=== PATIENT | female | born 1970 | race Caucasian/White ===

== ENCOUNTER 2017-11-14 07:45 | Inpatient (IN) | payer OTHER ==
[~2017-11-14] VITALS: Ht 162.6 cm; Wt 68.0 kg
[~2017-11-14 07:45] MED LIST: FOLIC ACID1 MG PO; IRON159 MG PO; MEGESTROL ACETA40 MG PO
[2017-11-23] MEDS ORDERED: IBUPROFEN800 MG PO (07:15)
[2017-11-23] MEDS ORDERED: Mylicon 125MG PO (07:15)
[2017-11-23] MEDS ORDERED: POLY119PG PO (07:15)
[2017-11-23] MEDS ORDERED: GABAPENTIN600 MG PO (07:15)
== END 2017-11-23 09:22 | DRG 743 ==
LOC: OB/GYN 11-21 05:15 → O/R 11-21 05:15 → SURH 11-21 05:15 → OB/GYN 11-21 12:15
PROVIDERS: Obstetrics & Gynecology
PROC: 0UT70ZZ Resection of Bilateral Fallopian Tubes, Open Approach (ICD-10-PCS; 2017-11-21)
PROC: 0UT90ZZ Resection of Uterus, Open Approach (ICD-10-PCS; principal; 2017-11-21 05:15)
DX: D25.1 Intramural leiomyoma of uterus (principal); N93.8 Other specified abnormal uterine and vaginal bleeding; D64.89 Other specified anemias; N84.0 Polyp of corpus uteri; N80.0 Endometriosis of uterus; D25.2 Subserosal leiomyoma of uterus

== ENCOUNTER → 2025-02-18 10:18 | Outpatient (CLI) | payer OTHER ==
[~2025-02-18 10:18] MED LIST changes: +GABAPENTIN600 MG PO; +IBUPROFEN800 MG PO; +Mylicon 125MG PO; +POLY119PG PO
[2025-02-18 11:12] LABS: HEMATOCRIT 42.2 % (36.0-45.00); HEMOGLOBIN 14.1 g/dL (12.0-15.00); MEAN CELL VOLUME 88.7 fL (80.00-100.00); MEAN CORPUSCULAR HEMOGLOBIN 29.7 pg (27.00-32.0); MEAN CORPUSCULAR HGB CONC 33.5 g/dl (32.0-36.0); PLATELET COUNT 147 K/uL (150-450); RED BLOOD COUNT 4.75 M/uL (4.00-6.00); RED CELL DISTRIBUTION WIDTH 13.5 % (11.5-14.5)
[2025-02-18 12:23] LABS: ALBUMIN 4.2 gm/dL (3.4-5.0); BILIRUBIN TOTAL 0.95 mg/dL (0.3-1.2); CALCIUM 9.6 mg/dL (8.5-10.1); CREATININE SERUM 0.55 mg/dL (0.55-1.02); GFR 114.75; GLOBULINA 3.3 G/DL (2.4-3.5); POTASSIUM 4.4 mEq/L (3.5-5.1); TOTAL PROTEIN 7.5 gm/dL (6.4-8.2)
[2025-02-18 13:30] LABS: FOLIC ACID > 20.00 ng/ml (4.78-20)
[2025-02-18 16:34] LABS: FERRITIN 126.2 NG/ML (8-252); T4 FREE 0.86 NG/ML (0.76-1.46); TSH 1.99 uIU/mL (0.358-3.74)
[2025-02-19 08:29] LABS: MANUAL PLATELET COUNT 238
[2025-02-19 08:30] LABS: PLATELET ESTIMATE NORMAL (NORMAL)
[2025-02-21 01:11] LABS: ANTI THYROID PEROXIDASE 11 IU/mL (0-34)
== END | disposition home or self-care (01) ==
LOC: LAB 10:18
PROVIDERS: ATTEND Internal Medicine Hematology & Oncology
DX: D69.6 Thrombocytopenia, unspecified (principal); I10 Essential (primary) hypertension; E78.2 Mixed hyperlipidemia; D50.8 Other iron deficiency anemias; R79.9 Abnormal finding of blood chemistry, unspecified; R74.02 Elevation of levels of lactic acid dehydrogenase [LDH]; K76.89 Other specified diseases of liver; D63.8 Anemia in other chronic diseases classified elsewhere; D55.0 Anemia due to glucose-6-phosphate dehydrogenase [G6PD] deficiency; D51.1 Vitamin B12 deficiency anemia due to selective vitamin B12 malabsorption with proteinuria; E03.8 Other specified hypothyroidism; E06.3 Autoimmune thyroiditis

== ENCOUNTER → 2025-04-18 | Outpatient (CLI) | payer OTHER ==
[2025-04-18 09:55] LABS: BASO % 0.5 % (0.1-1.2); EOS # 0.14 (0.04-0.54); EOS % 3.4 % (0.7-7.0); LYMPH # 1.61 (1.18-3.74); LYMPH % 39.5 % (19.3-53.1); MEAN PLATELET VOLUME 11.60 fl (9.4-12.4); MONO # 0.29 (0.24-0.82); MONO % 7.1 % (4.7-12.5); NEUT # 2.01 (1.56-6.13); NEUT % 49.3 % (34.0-71.1); RED CELL DISTRIBUTION WIDTH 13.2 % (11.6-14.4)
[2025-04-18 10:18] LABS: INR 1.00
[2025-04-18 10:23] LABS: COL EPI 141 SECONDS (82-175)
[2025-04-18 10:47] LABS: ALT/SGPT 41.0 U/L (12-78); AST/SGOT 16.0 U/L (15-37); BILIRUBIN TOTAL 0.91 mg/dL (0.3-1.2); BUN CREA RATIO 18.0 (7.0-25.0); CREATININE SERUM 0.66 mg/dL (0.55-1.02); GFR 92.98; GLOBULINA 3.4 G/DL (2.4-3.5); GLUCOSE FASTING 112.0 mg/dL (65-100); LDH 161.0 U/L (84-246); OSMOLALITY SERUM 285.0 MOSM/KG (275-295)
[2025-04-18 13:10] LABS: MANUAL PLATELET COUNT 207
== END | disposition home or self-care (01) ==
LOC: LAB 08:42
PROVIDERS: ATTEND Internal Medicine Hematology & Oncology
DX: D69.6 Thrombocytopenia, unspecified (principal); D51.3 Other dietary vitamin B12 deficiency anemia; I10 Essential (primary) hypertension; E78.2 Mixed hyperlipidemia; D50.8 Other iron deficiency anemias; R79.9 Abnormal finding of blood chemistry, unspecified; R74.02 Elevation of levels of lactic acid dehydrogenase [LDH]; K76.89 Other specified diseases of liver; D68.8 Other specified coagulation defects; E56.1 Deficiency of vitamin K; D69.1 Qualitative platelet defects